=== PATIENT | male | born 1975 | race Caucasian/White ===

== ENCOUNTER → 2023-02-14 | Outpatient (CLI) | payer OTHER, SELFPAY ==
--- NOTE | 2023-02-14 07:14 | EKG12_ITS ---
Test Reason : HYPERTENSION Blood Pressure : / mmHG Vent. Rate : 057 BPM Atrial Rate : 057 BPM P-R Int : 162 ms QRS Dur : 086 ms QT Int : 430 ms P-R-T Axes : 079 -22 031 degrees QTc Int : 418 ms Sinus bradycardia Otherwise normal ECG Confirmed by VIGNESH DAMICO, NASRIN ([id number]), photography editor SUNIL MONTES ([id number]) on 03/06/2023 2:07:40 PM Referred By: Rasheeda Liang Confirmed By:CANDICE MEDELLIN MD
== END | disposition home or self-care (01) ==
LOC: CVS 06:53
PROVIDERS: Referring Provider Nurse Practitioner Family; Visit Provider Nurse Practitioner Family
DX: R03.0 Elevated blood-pressure reading, without diagnosis of hypertension (principal)
CPT/HCPCS: 93005